=== PATIENT | female | born 1995 ===

== ENCOUNTER 2017-08-30 02:41 | Emergency (ER) ==
[2017-08-30 03:44] LABS: HIV (1/2) Antibody/Antigen Non-Reactive (NonReactive); HIV 1/2 INDEX 0.16 S/CO (<1.00)
[2017-08-30 06:41] LABS: HBSAB Concentration 583.16 mIU/mL; Hep B Surf AB Reactive (NonReactive); Hep C IgG Ab Reflex HepC Qnt (NonReactive)
[2017-08-30 06:42] LABS: Hep C Index 1.07 S/CO (0-0.79)
[2017-08-30] MEDS ORDERED: Emtricitabine/Tenofovir 200-300 MG TAB PO SCH (09:00)
[2017-09-03 11:21] LABS: Hep C PCR-Quant HCV Not Detected IU/mL (.)
== END 2017-08-30 06:40 | disposition home or self-care (01) ==
LOC: ERS 02:41 → EDSTATUS 02:48 → ERS 06:40 → EDSTATUS 15:58
DX: Z20.6 Contact with and (suspected) exposure to human immunodeficiency virus [HIV] (principal)
CPT/HCPCS: 86706; 86803; 87389; 87522; 99283